=== PATIENT | female | born 1935 | race Caucasian/White ===

== ENCOUNTER 2018-11-03 18:25 | Inpatient (IN) | payer OTHER, MEDICAID ==
[~2018-11-03] VITALS: Ht 162.6 cm; Wt 80.7 kg
[2018-11-03 18:33] VITALS: BP 121/83
--- NOTE | 2018-11-03 18:49 | NUR ---
PATIENT BIB EMS FROM HOME FOR GENERAL WEAKNESS AND ALTERED LOC. AAOX4 AT ER, C/O TIGHTNESS CHEST PAIN 5/10, REGULAR HR, NO S/S OF DISTRESS, LUNGS CLEAR PEDRO. ON RA. DENIES N/V/D; SKIN IS PINK/WARM/DRY; GENERALIZED WEAKNESS NOTED, VSS; PATIENT POSITIONED FOR COMFORT; HOB ELEVATED; BEDRAILS UP X2; BED DOWN. ER MD MADE AWARE OF PT STATUS.
[2018-11-03] MEDS ORDERED: VITD1000 PO (18:50)
[2018-11-03] MEDS ORDERED: DABI150C PO (18:50)
[2018-11-03] MEDS ORDERED: LOSA50TA66 PO (18:50)
[2018-11-03] MEDS ORDERED: FURO-570 PO (18:50)
[2018-11-03] MEDS ORDERED: MONT10TA35 PO (18:50)
[2018-11-03] MEDS ORDERED: ALBU0.0912 IH (18:50)
[2018-11-03] MEDS ORDERED: ISOS20TA13 PO (18:50)
[2018-11-03] MEDS ORDERED: METO50TE2 PO (18:50)
[2018-11-03] MEDS ORDERED: CHOL400T12 PO (18:50)
[2018-11-03] MEDS ORDERED: LEVO0.083 PO (18:50)
[2018-11-03] MEDS ORDERED: BUDE1AER IH (18:50)
--- NOTE | 2018-11-03 19:06 | NUR ---
Dr. Saldaña evaluating patient at bedside.
--- NOTE | 2018-11-03 19:10 | NUR ---
ASSUMED CARE OF PT AT THIS TIME. MD CHAMBERS AT BEDSIDE FOR EVAL. WILL CONTINUE TO MONITOR.
[2018-11-03] MEDS ORDERED: ALBUTEROL SULFATE/IPRATROPIU 3 ML SOL IH ONE ×2 (19:15→20:05)
[2018-11-03] MEDS ORDERED: NACL 0.9% 2,500 ML IV ONE (19:15)
[2018-11-03] MEDS ORDERED: PIPERACILLIN/TAZOBACTAM 3.375 GM in DEXTROSE 5% 50 ML IV ONE (19:15)
[2018-11-03] MEDS ORDERED: ACETAMINOPHEN EXTRA STRENGTH 500 MG TAB PO ONE (19:15)
--- NOTE | 2018-11-03 19:23 | NUR ---
Respiratory Therapist at bedside for respiratory intervention.
[2018-11-03 19:44] LABS: BASOPHILS % (AUTO) 0.4 % (0.0-2.0); EOSINOPHILS % (AUTO) 0.2 % (0.0-4.0); HEMATOCRIT 36.4 % (36-48); HEMOGLOBIN 11.9 g/dL (12.0-16.0); LYMPHOCYTES # (AUTO) 1.1 K/uL (2.5-16.5); LYMPHOCYTES % (AUTO) 22.9 % (20.5-51.1); MEAN CORPUSCULAR HEMOGLOBIN 31 pg (27-31); MEAN CORPUSCULAR HGB CONC 33 g/dL (33-37); MEAN CORPUSCULAR VOLUME 95.2 fL (80-94); MONOCYTES # (AUTO) 0.7 K/uL (0.8-1.0); MONOCYTES % (AUTO) 14.3 % (1.7-9.3); NEUTROPHILS # (AUTO) 3.1 K/uL (1.8-7.7); NEUTROPHILS % (AUTO) 62.2 % (42.2-75.2); PLATELET COUNT (AUTO) 124 K/uL (140-450); RED BLOOD CELL COUNT(AUTO) 3.82 MIL/uL (4.20-5.40); RED CELL DISTRIBUTION WIDTH 13.8 % (11.6-13.7); WHITE BLOOD COUNT (AUTO) 4.9 K/uL (4.8-10.8)
--- NOTE | 2018-11-03 19:47 | NUR ---
PT TAKEN TO CT
--- NOTE | 2018-11-03 19:47 | NUR ---
Lupe ding in [facility] - 11/03/18 at 2002 by MING PT TAKEN TO BED 6
--- NOTE | 2018-11-03 20:01 | NUR ---
PT RETURN FROM CT
--- NOTE | 2018-11-03 20:15 | NUR ---
Respiratory Therapist at bedside for respiratory intervention.
[2018-11-03] MEDS ORDERED: PIPERACILLIN/TAZOBACTAM 3.375 GM VIAL IV ONE (20:16)
[2018-11-03 20:17] LABS: PROTHROMBIN TIME 18.2 secs (10.8-13.4)
[2018-11-03 20:18] LABS: ALBUMIN 3.9 g/dL (3.4-5.0); ASPARTATE AMINOTRANSFERASE 27 U/L (15-37); CARBON DIOXIDE 29.5 mmol/L (21-32); CHLORIDE 98 mmol/L (98-107); CREATININE 1.1 mg/dL (0.6-1.3); GLUCOSE 110 mg/dL (74-106); LIPASE 135 U/L (73-393); POTASSIUM 3.5 mmol/L (3.5-5.1); SODIUM SERUM 136 mmol/L (136-145); TOTAL BILIRUBIN 0.6 mg/dL (0.0-1.0); UREA NITROGEN, BLOOD 14 mg/dL (7-18)
--- NOTE | 2018-11-03 20:27 | NUR ---
# 14 FR Shannon catheter with 10 ml utilizing sterile technique. Immediate return of 200 ml YELLOW urine noted. Bedside drainage bag placed below level of bladder. Urine sample collected and sent to lab. Pt tolerated procedure WELL.
--- NOTE | 2018-11-03 20:28 | NUR ---
Female Social Media Developer accompanied female patient for Shannon Insertion.
[2018-11-03 21:07] LABS: BILIRUBIN,URINE NEGATIVE (NEGATIVE); BLOOD, URINE 1+ (NEGATIVE); COLOR,URINE YELLOW (YELLOW); LEUKOCYTE ESTERASE ,URINE NEGATIVE (NEGATIVE); NITRITE, URINE NEGATIVE (NEGATIVE); UGLUCOSE NEGATIVE (NEGATIVE)
[2018-11-03 21:08] LABS: APPEARANCE,URINE SLIGHTLY HAZY (CLEAR)
[2018-11-03 21:13] LABS: RBC,URINE 0-5 (RARE) /HPF (0-5); WBC,URINE 0-5 (RARE) /HPF (0-5)
[2018-11-03] MEDS ORDERED: OSELTAMIVIR PHOSPHATE 75 MG CAP PO ONE (22:00)
[2018-11-03] MEDS ORDERED: DOCUSATE SODIUM 100 MG GELCAP PO PRN (22:05)
[2018-11-03] MEDS ORDERED: ONDANSETRON 4 MG/2 ML VIAL IM/IVP PRN (22:05)
[2018-11-03] MEDS ORDERED: ACETAMINOPHEN 325 MG TAB PO PRN (22:05)
--- NOTE | 2018-11-03 22:25 | NUR ---
Patient will be admitted to care of [facility]. Admitted to TELE. Will go to room 107B. Belongings list completed. Report to JETHRO MOORE.
[2018-11-03 22:26] VITALS: BP 106/66
--- NOTE | 2018-11-03 22:26 | NUR ---
Pt transferred to Tele 107B via BED WITH JETHRO SANDERSON.
--- NOTE | 2018-11-03 22:26 | NUR ---
PT ARRIVED TO [facility]IA GURNEY ESCORTED BY DEON GALVAN AND KIN MORELOS ED NURSE. REPORT GIVEN BY KIN MORELOS AT BEDSIDE. DAUGHTER SUDHIR ALSO AT BEDSIDE. PT WAS TRANSFERRED TO 113. PT DX AND CC IS ALOC, PT ALSO POSITIVE FOR INFLUENZA A, SHE IS ON DROPLET AND FALLS PRECAUTIONS AT THIS TIME, PT AROUSABLE TO NAME BUT LETHARGIC AND IS PANAMANIAN SPEAKING ONLY. HER SKIN IS INTACT AND SHE IS ON 2LITERS VIA N/C FOR C/O OF SOB. PT HAS NO C/O OF PAIN OR DISTRESS AT THIS TIME. PT NOTED WITH RHONCHI UPON EXPIRATION AND B/S POSITIVE IN AL 4 QUADS.
[2018-11-03 23:10] LABS: BARBITURATE, URINE NEG. ng/ml (NEG <=200); BENZODIAZEPINE, URINE NEG. ng/mL (NEG <=200); CANNABINOID, URINE NEG. ng/mL (NEG <=50); COCAINE, URINE NEG. ng/mL (NEG <=300); OPIATE, URINE NEG. ng/mL (NEG <=2000); PHENCYCLIDINE SCREEN,URINE NEG. ng/mL (NEG <=25)
[2018-11-03 23:20] LABS: CHOL/HDL RATIO 1.9 (1-4.5); FREE T4 (FREE THYROXINE) 1.42 ng/dL (0.76-1.46); MAGNESIUM 1.2 mg/dL (1.8-2.4); PHOSPHORUS 2.9 mg/dL (2.5-4.9); THYROID STIMULATING HORMONE 0.13 uIU/mL (0.34-3.74)
[2018-11-03] MEDS ORDERED: guaiFENesin DM 200/20 MG-10 ML 10 ML UDC PO PRN (23:25)
[2018-11-03] MEDS ORDERED: BENZOCAINE/MENTHOL 1 LOZ MM PRN (23:25)
[2018-11-03] MEDS ORDERED: MECLIZINE 25 MG TAB PO PRN (23:25)
[2018-11-03] MEDS ORDERED: ALBUTEROL SULFATE/IPRATROPIU 3 ML SOL IH PRN (23:30)
--- NOTE | 2018-11-03 23:45 | NUR ---
LEFT SPUTUM COLLECTION CUP AT BEDSIDE WILL CONT TO MONITOR PT.
--- NOTE | 2018-11-03 23:50 | NUR ---
PT ASSISTED TO TOILET FOR BMX1 AND ESCORTED BACK TO BED. ALL FALLS PRECAUTIONS IN PLACE, AND RESPIRATORY AT BEDSIDE. PT DENIES PAIN AT THIS TIME. RESPIRATORY AT BEDSIDE.
[2018-11-04] MEDS ORDERED: DILTIAZEM 25 MG/5 ML VIAL IVP SCH
--- NOTE | 2018-11-04 01:00 | NUR ---
PT IN BED SLEEPING BUT AROUSABLE TO NAME. NEW ORDERS NOTED AND GIVEN FOR TAMIFLU, AND N/S FLUIDS AND CARDIZEM IVP. V/S FOLLOWS T 97.6 P 103 R 20 B/P 140/82 02 97% WITH 2LITERS VIA N/C. PT HAS NO C/O OF PAIN OR DISTRESS AT THIS TIME, ALL FALLS AND DROPLET PRECAUTIONS IN PLACE AT THIS TIME.
[2018-11-04] MEDS ORDERED: OSELTAMIVIR PHOSPHATE 75 MG CAP ONE (01:30)
[2018-11-04] MEDS: ALBUTEROL SULFATE/IPRATROPIU 3 ML SOL IH SCH ×4 (01:32→19:16)
[2018-11-04] MEDS: NACL 0.9% 1,000 ML IV SCH ×2 (01:34→12:57)
[2018-11-04] MEDS ORDERED: MAG SULF 2000 MG/WATER PREMIX 50 ML IV SCH ×2 (03:00→11:00)
--- NOTE | 2018-11-04 03:30 | NUR ---
PT IN BED RESTING V/S FOLLOWS T 99.5 P 90 R 20 B/P 146/86 02 975 WITH 2L VIA N/C. ALL FALLS PRECAUTIONS IN PLACE.
[2018-11-04 04:00] VITALS: BP 146/86
--- NOTE | 2018-11-04 04:30 | NUR ---
PT C/O A HEADACHE, THE ONLY PRN ORDERED AT THIS TIME IS TYLENOL AND PT WAS GIVEN 1GM OF TYLENOL IN ER. DR. SOSA MADE AWARE OF SITUATION. HOWEVER PT HAS ALLERGIES TO ASPIRIN AND MORPHINE. DR. SOSA SAID HE WOULD CHECK BACK WITH PT SHORTLY TO SEE IF IT WILL GO AWAY ON ITS OWN., IF NOT DR. SOSA WILL ORDER AN OTHER ALTERNATIVE MEDICATION.
--- NOTE | 2018-11-04 05:39 | NUR ---
SYNTHROID NOT AVAILABLE IN [facility] IN EITHER TELE OR M/S, ADMINISTRATIVE AIDE MADE AWARE, HE WILL LOOK FOR THE MEDICATION.
--- NOTE | 2018-11-04 05:52 | NUR ---
HOMEOWNER ASSOCIATION MANAGER INFORMED PRIMARY NURSE THAT THIS DOSE OF SYNTHROID IS NOT AVAILABLE AT THIS TIME.
[2018-11-04] MEDS: LEVOTHYROXINE 0.088 MG TAB PO SCH (05:53)
--- NOTE | 2018-11-04 06:22 | NUR ---
PT IN BED RESTING, SHE SAID THAT SHE DOESNT HAVE A HEADACHE ANY LONGER.
--- NOTE | 2018-11-04 07:10 | NUR ---
REPORT GIVEN AT BEDSIDE TO APRYL MORELOS DAYSHIFT NURSE FOR CONTINUITY OF CARE, PT IN STABLE CONDITION.
--- NOTE | 2018-11-04 07:11 | NUR ---
RECEIVED REPORT FROM MIXING HOUSE OPERATOR NURSE FOR CONTINUITY OF CARE. PT IN STABLE CONDITION. RESPIRATIONS EVEN AND UNLABORED. IV INTACT AND PATENT. SAFETY MEASURES IN PLACE. BED IN LOW POSITION. CALL LIGHT AT BEDSIDE. WILL CONTINUE TO MONITOR.
--- NOTE | 2018-11-04 07:16 | NUR ---
RECEIVED PATIENT ON 2L NC, O2 SAT 96%. SCHEDULED BREATHING TREATMENT ADMINISTERED. PATIENT TOLERATED TX WELL, NO ADVERSE SIDE EFFECTS. RETURNED TO 2L NC. COACHED PATIENT ON DEEP BREATHING EXERCISES AND USE OF INCENTIVE SPIROMETER. PATIENT RETURNED DEMONSTRATION WITH POOR EFFORT. WILL CONTINUE TO WORK WITH PATIENT. COACHED PATIENT ON COUGH- SPUTUM SAMPLE TO BE COLLECTED BY SPONTANEOUS EXPECTORATION. NO RESPIRATORY DISTRESS NOTED AT THIS TIME. WILL CONTINUE TO MONITOR.
[2018-11-04 07:35] LABS: BASOPHILS % (AUTO) 0.5 % (0.0-2.0); EOSINOPHILS % (AUTO) 0.5 % (0.0-4.0); HEMATOCRIT 34.1 % (36-48); HEMOGLOBIN 11.1 g/dL (12.0-16.0); LYMPHOCYTES # (AUTO) 0.6 K/uL (2.5-16.5); LYMPHOCYTES % (AUTO) 21.2 % (20.5-51.1); MEAN CORPUSCULAR HEMOGLOBIN 31 pg (27-31); MEAN CORPUSCULAR HGB CONC 33 g/dL (33-37); MEAN CORPUSCULAR VOLUME 95.8 fL (80-94); MONOCYTES # (AUTO) 0.5 K/uL (0.8-1.0); NEUTROPHILS # (AUTO) 1.6 K/uL (1.8-7.7); NEUTROPHILS % (AUTO) 58.8 % (42.2-75.2); PLATELET COUNT (AUTO) 107 K/uL (140-450); RED BLOOD CELL COUNT(AUTO) 3.56 MIL/uL (4.20-5.40); RED CELL DISTRIBUTION WIDTH 13.9 % (11.6-13.7); WHITE BLOOD COUNT (AUTO) 2.7 K/uL (4.8-10.8)
[2018-11-04 07:46] LABS: ANION GAP 10.5 (8-16); CARBON DIOXIDE 30.1 mmol/L (21-32); CHLORIDE 104 mmol/L (98-107); CREATININE 0.9 mg/dL (0.6-1.3); GLUCOSE 101 mg/dL (74-106); MAGNESIUM 1.5 mg/dL (1.8-2.4); PHOSPHORUS 3.2 mg/dL (2.5-4.9); POTASSIUM 3.6 mmol/L (3.5-5.1); SODIUM SERUM 141 mmol/L (136-145); UREA NITROGEN, BLOOD 14 mg/dL (7-18)
--- NOTE | 2018-11-04 08:24 | NUR ---
PATIENT HAS BEEN SCREENED AND CATEGORIZED HIGH NUTRITION RISK. PATIENT WILL BE SEEN WITHIN 1-2 DAYS OF ADMISSION. 11/04/18-11/05/[address]
[2018-11-04] MEDS ORDERED: OSELTAMIVIR PHOSPHATE 75 MG CAP PO SCH ×3 (09:00)
--- NOTE | 2018-11-04 09:00 | NUR ---
GAVE ORDERED DUE MEDICATIONS. PT TOLERATED WELL. WILL CONTINUE TO MONITOR.
[2018-11-04] MEDS: FUROSEMIDE 40 MG TAB PO SCH (09:53)
[2018-11-04] MEDS: guaiFENesin 600 MG TABER PO SCH ×2 (09:53→21:10)
[2018-11-04] MEDS: METOPROLOL SUCCINATE 50 MG TABER PO SCH (09:54)
[2018-11-04] MEDS: MONTELUKAST SODIUM 10 MG TAB PO SCH (09:54)
[2018-11-04] MEDS: LOSARTAN 50 MG TAB PO SCH ×2 (09:54→21:09)
[2018-11-04] MEDS: DABIGATRAN ETEXILATE MESYLAT 75 MG CAP PO SCH (09:58)
--- NOTE | 2018-11-04 10:00 | NUR ---
RECEIVED SPUTUM SAMPLE, TAKEN TO LAB.
--- NOTE | 2018-11-04 10:15 | NUR ---
ASSISTED PT TO RESTROOM FOR BM. NARAYANAN IN PLACE AT THIS TIME. PT TOLERATED WELL.
[2018-11-04] MEDS ORDERED: MAG SULF 2000 MG/WATER PREMIX 100 ML IV ONE (10:20)
[2018-11-04] MEDS ORDERED: FERROUS SULFATE 325 MG TABEC PO SCH (10:30)
[2018-11-04] MEDS ORDERED: ASCORBIC ACID 500 MG TAB PO SCH (10:30)
[2018-11-04] MEDS ORDERED: MAGNESIUM SULFATE 4GM in STERILE WATER 100 ML PREMIX IV SCH (11:00)
--- NOTE | 2018-11-04 12:00 | NUR ---
PT LYING IN BED IN STABLE CONDITION. WILL CONTINUE TO MONITOR.
--- NOTE | 2018-11-04 13:37 | NUR ---
PATIENT ON ROOM AIR. O2 SAT 98%, HEART RATE 95.
--- NOTE | 2018-11-04 13:38 | NUR ---
SCHEDULED BREATHING TREATMENT ADMINISTERED. PATIENT TOLERATED TX WELL. FAMILY AT BEDSIDE. NO RESPIRATORY DISTRESS NOTED AT THIS TIME. WILL CONTINUE TO MONITOR.
--- NOTE | 2018-11-04 14:15 | NUR ---
REMOVED NARAYANAN CATHETER WITHOUT ISSUE. PT TOLERATED WELL. WILL CONTINUE TO MONITOR.
--- NOTE | 2018-11-04 14:58 | NUR ---
11/04/18 RD INITIAL ASSESSMENT COMPLETED PLEASE REFER TO NUTRITION ASSESSMENT UNDER CARE ACTIVITY FOR ESTIMATED NUTRITIONAL NEEDS. 1. CONTINUE CARDIAC DIET TOLERATED 2. RECOMMEND ENSURE BID 3. RD TO FOLLOW-UP 3-5 DAYS, MODERATE RISK [address]OR[address]IO [address]
[2018-11-04 16:00] VITALS: BP 126/57
--- NOTE | 2018-11-04 16:52 | NUR ---
PT HAD A TEMP 100.5. GAVE 2 TYLENOL 325MG TAB. WILL CONTINUE TO MONITOR.
[2018-11-04] MEDS: FERROUS SULFATE 325 MG TABEC PO SCH (16:53)
--- NOTE | 2018-11-04 17:52 | NUR ---
RECHECKED PT TEMP 98.8 FEVER SUBSIDED. WILL CONTINUE TO MONITOR.
--- NOTE | 2018-11-04 19:20 | NUR ---
GAVE REPORT TO NIGHT NURSE FOR CONTINUITY OF CARE. PT IN STABLE CONDITION.
--- NOTE | 2018-11-04 19:21 | NUR ---
RECEIVED BEDSIDE REPORT FROM DAY SHIFT NURSE APRYL RN, PT STABLE, NO DISTRESS NOTED, IV TO L AC 18 G, LEAKING, WILL PUT IN NEW IV, PT ON 2LPM O2 VIA NC, NO SOB NOTED, PT HAS NO C/O PAIN, FAMILY AT BED SIDE, INITIAL ASSESSMENT DONE, ALL SAFETY PRECAUTION MET, CALL LIGHT WITHIN REACH, WILL CONTINUE TO MONITOR.
[2018-11-04 20:00] VITALS: BP 112/64
[2018-11-04] MEDS: OSELTAMIVIR 30MG CAPSULE PO SCH (21:10)
--- NOTE | 2018-11-04 21:10 | NUR ---
DUE MEDICATION ADMINISTERED, PT TOLERATED WELL, NO DISTRESS NOTED, CALL LIGHT WITHIN REACH, WILL CONTINUE TO MONITOR.
[2018-11-05] VITALS (8 sets, daily range): BP systolic 96–126; BP diastolic 54–76
[2018-11-05] MEDS ORDERED: ZOLPIDEM 5 MG TAB PO PRN (00:25)
--- NOTE | 2018-11-05 00:25 | NUR ---
CHECKED ON PT, PT AWAKE, STATED UNABLE TO SLEEP, V/S TAKEN, WNL, CALL LIGHT WITHIN REACH, NOTIFIED DR. SOSA REGARDING PT COMPLAINTS AND CONCERNS, STATED UNDERSTANDING AND WILL ORDER AMBIEN 5MG, WILL ADMINISTER SOON ORDER IS IN.
[2018-11-05] MEDS: ALBUTEROL SULFATE/IPRATROPIU 3 ML SOL IH SCH ×4 (01:19→20:10)
[2018-11-05] MEDS ORDERED: LORazepam 2 MG/ML VIAL IVP PRN (01:40)
--- NOTE | 2018-11-05 01:41 | NUR ---
PT CONFUSED, TRYING TO GET OUT OF BED, TRYING TO PULL TELE MONITOR AND IV OFF, NOTIFIED DR. SOSA, FAMILY AT BEDSIDE, NO DISTRESS NOTED, CALL LIGHT WITHIN REACH, DR. SOSA STATED UNDERSTANDING, AND WILL ORDER MEDICATION.
--- NOTE | 2018-11-05 03:40 | NUR ---
PT SLEEPING, NO DISTRESS NOTED, V/S TAKEN, WNL, CALL LIGHT WITHIN REACH, WILL CONTINUE TO MONITOR.
[2018-11-05] MEDS: LEVOTHYROXINE 0.088 MG TAB PO SCH (06:00)
[2018-11-05] MEDS: NACL 0.9% 1,000 ML IV SCH ×2 (06:02→19:16)
--- NOTE | 2018-11-05 07:22 | NUR ---
ENDORSED PT TO DAY SHIFT NURSE APRYL RN, PT STABLE, NO DISTRESS NOTED, CALL LIGHT WITHIN REACH. FAMILY AT BEDSIDE, RT AT BEDSIDE, PT ON BREATHING TREATMENT.
--- NOTE | 2018-11-05 07:23 | NUR ---
RECEIVED REPORT FROM CUSHION SPRING ASSEMBLER NURSE. PT IN STABLE CONDITION. RESPIRATIONS EVEN AND UNLABORED. O2 2L VIA NC. IV INTACT AND PATENT. SAFETY MEASURES IN PLACE. CALL LIGHT AT BEDSIDE. BED IN LOW POSITION. WILL CONTINUE TO MONITOR.
[2018-11-05 07:47] LABS: BASOPHILS % (AUTO) 0.5 % (0.0-2.0); EOSINOPHILS # (AUTO) 0.1 K/uL (0-0.4); EOSINOPHILS % (AUTO) 4.6 % (0.0-4.0); HEMATOCRIT 33.9 % (36-48); HEMOGLOBIN 11.2 g/dL (12.0-16.0); LYMPHOCYTES # (AUTO) 0.6 K/uL (2.5-16.5); LYMPHOCYTES % (AUTO) 22.8 % (20.5-51.1); MEAN CORPUSCULAR HEMOGLOBIN 32 pg (27-31); MEAN CORPUSCULAR HGB CONC 33 g/dL (33-37); MEAN CORPUSCULAR VOLUME 95.9 fL (80-94); MONOCYTES # (AUTO) 0.5 K/uL (0.8-1.0); MONOCYTES % (AUTO) 18.6 % (1.7-9.3); NEUTROPHILS # (AUTO) 1.5 K/uL (1.8-7.7); NEUTROPHILS % (AUTO) 53.5 % (42.2-75.2); PLATELET COUNT (AUTO) 108 K/uL (140-450); RED BLOOD CELL COUNT(AUTO) 3.54 MIL/uL (4.20-5.40); RED CELL DISTRIBUTION WIDTH 13.7 % (11.6-13.7); WHITE BLOOD COUNT (AUTO) 2.8 K/uL (4.8-10.8)
[2018-11-05 07:53] LABS: ANION GAP 9.5 (8-16); CARBON DIOXIDE 31.2 mmol/L (21-32); CHLORIDE 102 mmol/L (98-107); GLUCOSE 106 mg/dL (74-106); POTASSIUM 3.7 mmol/L (3.5-5.1); SODIUM SERUM 139 mmol/L (136-145); UREA NITROGEN, BLOOD 19 mg/dL (7-18)
--- NOTE | 2018-11-05 08:00 | NUR ---
ASSISTED PT WITH BEDPAN. PT TOLERATED WELL. WILL CONTINUE TO MONITOR.
[2018-11-05 08:09] LABS: MAGNESIUM 1.9 mg/dL (1.8-2.4); PHOSPHORUS 3.5 mg/dL (2.5-4.9)
[2018-11-05] MEDS: FERROUS SULFATE 325 MG TABEC PO SCH ×2 (08:55→17:36)
[2018-11-05] MEDS: MONTELUKAST SODIUM 10 MG TAB PO SCH (08:56)
[2018-11-05] MEDS: guaiFENesin 600 MG TABER PO SCH (08:56)
[2018-11-05] MEDS: ASCORBIC ACID 500 MG TAB PO SCH (08:57)
[2018-11-05] MEDS: LOSARTAN 50 MG TAB PO SCH ×2 (08:58→20:53)
[2018-11-05] MEDS: METOPROLOL SUCCINATE 50 MG TABER PO SCH (08:59)
[2018-11-05] MEDS: FUROSEMIDE 40 MG TAB PO SCH (08:59)
--- NOTE | 2018-11-05 09:00 | NUR ---
GAVE ORDERED DUE MEDICATIONS. PT TOLERATED WELL. WILL CONTINUE TO MONITOR.
[2018-11-05] MEDS: DABIGATRAN ETEXILATE MESYLAT 75 MG CAP PO SCH (09:01)
[2018-11-05] MEDS: OSELTAMIVIR 30MG CAPSULE PO SCH ×2 (09:13→20:53)
--- NOTE | 2018-11-05 11:00 | NUR ---
PT LYING IN BED SLEEPING IN STABLE CONDITION. WILL CONTINUE TO MONITOR.
--- NOTE | 2018-11-05 13:00 | NUR ---
ASSISTED PT TO THE RESTROOM, PT TOLERATED WELL. WILL CONTINUE TO MONITOR. BED IN LOW POSITION.
--- NOTE | 2018-11-05 15:40 | NUR ---
Cable Television Technician Notes: I faxed Patients clinical information to at [facility] per MD request and order for Physical Therapy after discharge.
--- NOTE | 2018-11-05 16:30 | NUR ---
Machine Repairer Maintenance Notes: I called [facility] I spoke to Rosaura from admissions to confirm home health MD order for P.T and Patient's Clinical information was received. Per Rosaura she received patient information and will be sending an RN to evaluate Patient and begin Home health services after discharge today or possibly tomorrow. I thanked Rosaura for the assistance and ended the call.
--- NOTE | 2018-11-05 17:16 | NUR ---
1030 PERFORMED ORTHOSTATIC B/P. PT TOLERATED WELL. WILL CONTINUE TO MONITOR.
--- NOTE | 2018-11-05 17:45 | NUR ---
ASSISTED WITH REPOSITIONING. PT TOLERATED WELL. BED IN LOW POSITION. WILL CONTINUE TO MONITOR.
--- NOTE | 2018-11-05 19:18 | NUR ---
GAVE REPORT TO NIGHT NURSE FOR CONTINUITY OF CARE. PT IN STABLE CONDITION.
--- NOTE | 2018-11-05 19:19 | NUR ---
RECEIVED REPORT FROM DAY SHIFT NURSE APRYL-RN AT BEDSIDE. PT RESTING IN BED WITH FAMILY AT BEDSIDE. PT AOX3-CONFUSED, ON 2L/NC WITH LEFT HAND #24G RUNNING NS @ 60ML/HR. AMBULATORY WITH ASSISTANCE WITH LEFT LEG CELLULITIS- DIONNA CLOSED WOUND. DISCUSSED PLAN OF CARE AND VERBALIZED UNDERSTANDING. NO S/S OF RESPIRATORY DISTRESS OR DISCOMFORT NOTED AT THIS TIME. BED IN LOWEST POSITION, BED BREAKS ON, BOTH SIDE RAILS UP AND FALL PRECAUTIONS IN PLACE. DROPLET PRECAUTIONS IN PLACE. BEDSIDE TABLE AND CALL LIGHT WITHIN REACH. WILL CONTINUE TO MONITOR.
--- NOTE | 2018-11-05 20:00 | NUR ---
VITAL SIGNS TAKEN AND TOLERATED WELL. NO S/S OF RESPIRATORY DISTRESS OR DISCOMFORT NOTED AT THIS TIME. WILL CONTINUE TO MONITOR.
--- NOTE | 2018-11-05 20:53 | NUR ---
SCHEDULED MEDICATION GIVEN AND TOLERATED WELL. NO S/S OF RESPIRATORY DISTRESS OR DISCOMFORT NOTED AT THIS TIME. WILL CONTINUE TO MONITOR.
--- NOTE | 2018-11-05 23:00 | NUR ---
PT CONTINUES TO REST IN BED. NO S/S OF RESPIRATORY DISTRESS OR DISCOMFORT NOTED AT THIS TIME. WILL CONTINUE TO MONITOR.
[2018-11-06] VITALS: BP 139/80
--- NOTE | 2018-11-06 | NUR ---
VITAL SIGNS TAKEN AND TOLERATED WELL. NO S/S OF RESPIRATORY DISTRESS OR DISCOMFORT NOTED AT THIS TIME. WILL CONTINUE TO MONITOR.
[2018-11-06] MEDS: NACL 0.9% 1,000 ML IV SCH ×2 (00:13→13:22)
[2018-11-06] MEDS: ALBUTEROL SULFATE/IPRATROPIU 3 ML SOL IH SCH ×3 (01:13→13:42)
--- NOTE | 2018-11-06 02:00 | NUR ---
SLEEPING AID REQUESTED. DR. BENOIT ORDERED DESYREL FOR INSOMNIA HOWEVER DUE TO EXPERIENCE WITH MIGUELANGEL, DESYREL WAS NO LONGER DESIRED. DESYREL WAS NOT GIVEN. NO S/S OF RESPIRATORY DISTRESS OR DISCOMFORT NOTED AT THIS TIME. WILL CONTINUE TO MONITOR.
[2018-11-06] MEDS ORDERED: traZODone 50 MG TAB PO SCH (02:15)
[2018-11-06 04:00] VITALS: BP 151/71
--- NOTE | 2018-11-06 04:00 | NUR ---
VITAL SIGNS TAKEN AND TOLERATED WELL. NO S/S OF RESPIRATORY DISTRESS OR DISCOMFORT NOTED AT THIS TIME. WILL CONTINUE TO MONITOR.
--- NOTE | 2018-11-06 06:00 | NUR ---
PT SLEEPING IN BED. NO S/S OF RESPIRATORY DISTRESS OR DISCOMFORT NOTED AT THIS TIME. WILL CONTINUE TO MONITOR.
[2018-11-06] MEDS: LEVOTHYROXINE 0.088 MG TAB PO SCH (06:30)
--- NOTE | 2018-11-06 06:30 | NUR ---
SCHEDULED MEDICATION GIVEN AND TOLERATED WELL. NO S/S OF RESPIRATORY DISTRESS OR DISCOMFORT NOTED AT THIS TIME. WILL CONTINUE TO MONITOR.
--- NOTE | 2018-11-06 07:24 | NUR ---
REPORT GIVEN TO DAY SHIFT NURSE JAXSON-RN FOR CONTINUITY OF CARE.
--- NOTE | 2018-11-06 07:25 | NUR ---
RECEIVED BEDSIDE REPORT FROM METALIZING SUPERVISOR. PT AWAKE AND RESTING COMFORTABLY. FAMILY AT BEDSIDE. RESPIRATIONS EVEN AND UNLABORED. SKIN WARM, DRY, AND COLOR WNL. PLAN OF CARE REVIEWED. ALL SAFETY MEASURES IN PLACE. NO NEEDS AT THIS TIME.
--- NOTE | 2018-11-06 07:45 | NUR ---
ASSISTED PT TO THE BATHROOM. PT AMBULATED SLOWLY WITH UNSTEADY GAIT TO THE BATHROOM WITH ASSISTANCE.
[2018-11-06 08:00] VITALS: BP 144/97
[2018-11-06] MEDS: MONTELUKAST SODIUM 10 MG TAB PO SCH (08:55)
[2018-11-06] MEDS: ASCORBIC ACID 500 MG TAB PO SCH (08:55)
[2018-11-06] MEDS: FUROSEMIDE 40 MG TAB PO SCH (08:56)
[2018-11-06] MEDS: METOPROLOL SUCCINATE 50 MG TABER PO SCH (08:56)
[2018-11-06] MEDS: FERROUS SULFATE 325 MG TABEC PO SCH (08:57)
[2018-11-06] MEDS: LOSARTAN 50 MG TAB PO SCH (08:57)
[2018-11-06] MEDS: DABIGATRAN ETEXILATE MESYLAT 75 MG CAP PO SCH (09:00)
[2018-11-06] MEDS: OSELTAMIVIR 30MG CAPSULE PO SCH (09:04)
--- NOTE | 2018-11-06 09:08 | NUR ---
ADMINISTERED SCHEDULED MEDICATIONS. PT TOLERATED WELL. FAMILY AT BEDSIDE. NO NEEDS AT THIS TIME.
[2018-11-06 12:00] VITALS: BP 115/74
[2018-11-06] MEDS ORDERED: TAM75 PO (14:02)
--- NOTE | 2018-11-06 14:54 | NUR ---
[facility] [phone], NOTIFIED ROSALVA THAT PT IS GOING HOME WITH DAUGHTER G[place] [phone] [place] [phone] .
--- NOTE | 2018-11-06 17:35 | NUR ---
DAUGHTER HUSEYIN AT THE BEDSIDE TO TAKE PT HOME. DISCHARGE INSTRUCTIONS AND PRESCRIPTIONS GIVEN AND EXPLAINED TO PT AND HUSEYIN. QUESTIONS ASKED WERE ANSWERED. IV REMOVED. CATHETER TIP INTACT. BLEEDING CONTROLLED. PT TOLERATED WELL. PT ASSISTED TO THE WHEELCHAIR AND ESCORTED OUT TO THE FRONT LOBBY. DC HOME WITH HOME HEALTH.
[2018-11-09 12:32] LABS: FOLIC ACID > 20.00 ng/mL (>3.0); TRANSFERRIN 223 mg/dL (200-370)
== END 2018-11-06 17:35 | disposition home health service (06) | DRG 871 ==
LOC: MED 18:25 → MTU 22:09
PROVIDERS: ADMIT General Practice; ATTEND General Practice
DX: A41.9 Sepsis, unspecified organism (principal); G93.41 Metabolic encephalopathy; E83.42 Hypomagnesemia; E03.9 Hypothyroidism, unspecified; D69.6 Thrombocytopenia, unspecified; R31.9 Hematuria, unspecified; I25.10 Atherosclerotic heart disease of native coronary artery without angina pectoris; I48.2 Chronic atrial fibrillation; J45.909 Unspecified asthma, uncomplicated; Z96.651 Presence of right artificial knee joint; F43.9 Reaction to severe stress, unspecified; I11.9 Hypertensive heart disease without heart failure; D64.9 Anemia, unspecified; E66.9 Obesity, unspecified; J10.1 Influenza due to other identified influenza virus with other respiratory manifestations; Z88.6 Allergy status to analgesic agent; Z88.5 Allergy status to narcotic agent; Z79.899 Other long term (current) drug therapy; I25.2 Old myocardial infarction; Z71.3 Dietary counseling and surveillance; Z68.30 Body mass index [BMI] 30.0-30.9, adult
CPT/HCPCS: 36415; 51702; 70450; 71045; 80048; 80053; 80305; 81001; 82150; 82607; 82728; 82746; 83036; 83540; 83605; 83690; 83735; 83880; 84100; 84436; 84439; 84443; 84479; 84484; 85025; 85045; 85610; 87040; 87070; 87081; 87086; 87186; 87205; 87804; 93005; 93880; 94640; 97116; 97530; 99281; J2060; J2543; J3475; J3490; J7030; J7620; Q0092

== ENCOUNTER 2019-03-02 20:12 | Emergency (ER) | payer OTHER, MEDICAID ==
[~2019-03-02] VITALS: Ht 152.4 cm; Wt 78.0 kg
[~2019-03-02 20:12] MED LIST: ALBU0.0912 IH; BUDE1AER IH; CHOL400T12 PO; DABI150C PO; FURO-570 PO; ISOS20TA13 PO; LEVO0.083 PO; LOSA50TA66 PO; METO50TE2 PO; MONT10TA35 PO; TAM75 PO; VITD1000 PO
[2019-03-02 20:29] VITALS: BP 177/89
--- NOTE | 2019-03-02 20:33 | NUR ---
TO LOBBY A/W BED, AMBULATORY
--- NOTE | 2019-03-02 20:48 | NUR ---
BIB FAMILY. C/O N/V AND EPIGASTRIC ABD PAIN X12 HRS. DIFFICULTY KEEP FLUIDS DOWN. AFEBRILE WITH VSS. X4 QUADRANT ABD SOUNDS PRESENT. NO REBOUND TENDERNESS. A&OX4. POSITOINED IN BED FOR COMFORT. FAMILY AT BEDSIDE. ER MD AWARE. CONTINUE TO MONITOR.
--- NOTE | 2019-03-02 20:48 | NUR ---
PT AMBULATED TO ER BED 07
[2019-03-02] MEDS ORDERED: ONDANSETRON 4 MG ODT PO ONE (21:10)
--- NOTE | 2019-03-02 21:35 | NUR ---
XRAY AT BEDSIDE
[2019-03-02 21:42] LABS: BASOPHILS % (AUTO) 0.5 % (0.0-2.0); EOSINOPHILS # (AUTO) 0.2 K/uL (0-0.4); EOSINOPHILS % (AUTO) 2.8 % (0.0-4.0); HEMATOCRIT 35.3 % (36-48); HEMOGLOBIN 11.6 g/dL (12.0-16.0); LYMPHOCYTES % (AUTO) 15.5 % (20.5-51.1); MEAN CORPUSCULAR HEMOGLOBIN 32 pg (27-31); MEAN CORPUSCULAR HGB CONC 33 g/dL (33-37); MONOCYTES # (AUTO) 0.6 K/uL (0.8-1.0); MONOCYTES % (AUTO) 8.9 % (1.7-9.3); NEUTROPHILS # (AUTO) 4.5 K/uL (1.8-7.7); NEUTROPHILS % (AUTO) 72.3 % (42.2-75.2); PLATELET COUNT (AUTO) 160 K/uL (140-450); RED BLOOD CELL COUNT(AUTO) 3.67 MIL/uL (4.20-5.40); RED CELL DISTRIBUTION WIDTH 13.3 % (11.6-13.7); WHITE BLOOD COUNT (AUTO) 6.2 K/uL (4.8-10.8)
[2019-03-02 21:56] LABS: ALBUMIN 3.8 g/dL (3.4-5.0); ANION GAP 8.5 (8-16); ASPARTATE AMINOTRANSFERASE 23 U/L (15-37); CARBON DIOXIDE 30.7 mmol/L (21-32); CHLORIDE 105 mmol/L (98-107); GLUCOSE 126 mg/dL (74-106); LIPASE 159 U/L (73-393); POTASSIUM 4.2 mmol/L (3.5-5.1); SODIUM SERUM 140 mmol/L (136-145); TOTAL BILIRUBIN 0.6 mg/dL (0.0-1.0); UREA NITROGEN, BLOOD 20 mg/dL (7-18)
[2019-03-02] MEDS ORDERED: DICYCLOMINE HCL LIQUID 20 MG, ALUMINUM HYD/MAG/SIMETHICONE 30 ML, LIDOCAINE VISCOUS 2% ... PO ONE ×3 (22:00)
--- NOTE | 2019-03-02 22:00 | NUR ---
PT C/O UPPER BACK PAIN 04/24. NEW ONSET OF THORACIC PAIN. VSS. DR ORTA NOTIFIED. CONTINUE TO MONITOR.
[2019-03-02] MEDS ORDERED: KETOROLAC 60 MG/2 ML VIAL IM ONE (22:50)
--- NOTE | 2019-03-02 23:02 | NUR ---
EKG DONE AT BEDSIDE
[2019-03-02 23:43] VITALS: BP 96/60
--- NOTE | 2019-03-02 23:43 | NUR ---
DISCHARGE INSTRUCTIONS GIVEN TO PT. NO N/V. NO EPIGASTRIC OR OTHER PAIN. 0/10. A&OX4. ACCOMPANIED BY DAUGHTER. RX FOR MOTRIN, ZOFRAN, AND PRIOLSEC GIVEN. SIDE EFECTS EXPLAINED. INSTRUCTED TO F/U WITH PCP AND WHEN TO RETURN TO ED. PT VERBALIZED UNDERSTANDING OF DC INSTRUCTION. ALL QUESTIONS ANSWERED.
== END 2019-03-02 23:43 | disposition home or self-care (01) ==
LOC: MED 20:12
DX: R11.2 Nausea with vomiting, unspecified (principal); R10.13 Epigastric pain; R47.02 Dysphasia; J45.909 Unspecified asthma, uncomplicated; I48.91 Unspecified atrial fibrillation; E03.9 Hypothyroidism, unspecified; I10 Essential (primary) hypertension; Z98.890 Other specified postprocedural states; Z79.899 Other long term (current) drug therapy; Z88.6 Allergy status to analgesic agent; Z88.5 Allergy status to narcotic agent
CPT/HCPCS: 36415; 71045; 80053; 83690; 85025; 93005; 96372; 99284; J1885; Q0162